=== PATIENT | male | born 1980 | race Hispanic/Latino ===

== ENCOUNTER 2020-03-19 10:57 | Emergency (ER) | payer SELFPAY ==
[2020-03-19] MEDS ORDERED: MECLIZINE HCL 12.5 MG TAB ONE (11:39)
[2020-03-19] MEDS ORDERED: PROMETHAZINE INJ 25 MG/ML AMP ONE (11:39)
[2020-03-19] MEDS ORDERED: NA CHLORIDE 0.9% 1,000 ML ONE (11:39)
[2020-03-19 11:52] LABS: Absolute Lymphocytes (CBC) 1.9 K/uL (0.7-4.9); Basophils % 0.9 % (0-1.3); Hematocrit 46.4 % (39.6-49.0); Lymphocytes % 19.6 % (15.3-44.8); MPV 8.3 fL (7.6-11.3); RBC Red Blood Cell Count 5.15 M/uL (4.33-5.43)
[2020-03-19 12:06] LABS: BUN Blood Urea Nitrogen 13 mg/dL (7-18); Bicarbonate 27 mmol/L (21-32); Glucose Level 123 mg/dL (74-106); Potassium 4.3 mmol/L (3.5-5.1); Sodium Level 141 mmol/L (136-145)
--- NOTE | 2020-03-19 13:36 | ER ---
Nurse's Notes [facility] Name: Laureano Ly Age: 40 yrs Sex: Male : 1980 Arrival Date: 03/19/2020 Time: 10:58 Bed 6 Private MD: Diagnosis: Vertigo Presentation: 03/19 11:03 Chief complaint: Patient states: Dizziness that began this morning when patient woke up ss at 0900. Is worse when opening eyes and moving head. Also c/o N/V with dizziness. Coronavirus screen: Proceed with normal triage. Patient denies a cough. Patient denies shortness of breath or difficulty breathing. Patient denies measured and/or subjective temperature greater than 100.4F prior to today's visit. Patient denies travel on a cruise ship or to a country the [facility] currently lists as an affected area. Patient denies contact with known and/or suspected case of COVID-19. Ebola Screen: Patient denies exposure to infectious person. Patient denies travel to an Ebola-affected area in the 21 days before illness onset. Initial Sepsis Screen: Does the patient meet any 2 criteria? No. Patient's initial sepsis screen is negative. Does the patient have a suspected source of infection? No. Patient's initial sepsis screen is negative. Risk Assessment: Do you want to hurt yourself or someone else? Patient reports no desire to harm self or others. Onset of symptoms was March 19, 2020. 11:03 Method Of Arrival: Ambulatory ss 11:03 Acuity: NORMAN 3 ss Historical: - Allergies: 11:05 No Known Allergies; ss - Home Meds: 11:05 None [Active]; ss - PMHx: 11:05 None; ss - PSHx: 11:05 None; ss - Immunization history:: Adult Immunizations up to date. - Social history:: Smoking status: Patient denies any tobacco usage or history of. Screenin:18 Abuse screen: Denies threats or abuse. Denies injuries from another. Nutritional sv screening: No deficits noted. Tuberculosis screening: No symptoms or risk factors identified. Fall Risk None identified. Assessment: 11:30 General: Appears in no apparent distress. uncomfortable, well groomed, well developed, sv Behavior is calm, cooperative, appropriate for age. Pain: Denies pain. Neuro: Level of Consciousness is awake, alert, obeys commands, Oriented to person, place, time, situation, Moves all extremities. Full function Speech is normal, Reports dizziness, since waking up this morning. Respiratory: Airway is patent Respiratory effort is even, unlabored, Respiratory pattern is regular, symmetrical. GI: Abdomen is round non-distended, Reports nausea, vomiting. Derm: Skin is intact, Skin is pink, warm \T\ dry. Musculoskeletal: Range of motion: intact in all extremities. 12:30 Reassessment: Patient appears in no apparent distress at this time. Patient and/or sv family updated on plan of care and expected duration. Pain level reassessed. Patient is alert, oriented x 3, equal unlabored respirations, skin warm/dry/pink. 13:52 Reassessment: Patient appears in no apparent distress at this time. Patient and/or sv family updated on plan of care and expected duration. Pain level reassessed. Patient is alert, oriented x 3, equal unlabored respirations, skin warm/dry/pink. Patient states feeling better. Patient states symptoms have improved. Vital Signs: 11:03 BP 137 / 90; Pulse 86; Resp 16; Temp 97.0(TE); Pulse Ox 98% on R/A; Weight 106.59 kg; ss Height 5 ft. 7 in. (170.18 cm); Pain 0/10; 11:03 Body Mass Index 36.81 (106.59 kg, 170.18 cm) ED Course: 10:58 Patient arrived in ED. as 11:04 Triage completed. ss 11:05 Arm band placed on right wrist. ss 11:14 Mary Alice Escudero FNP-C is [facility]. snw 11:14 Eryn Lopez MD is Attending Physician. snw 11:16 Kaci Kuhn RN is Primary Nurse. sv 11:18 Nurse Practitioner and/or Physician Building Carpenter Helper to see patient. sv 11:18 Patient has correct armband on for positive identification. Bed in low position. Call sv light in reach. Door closed. Head of bed elevated. 11:30 Inserted saline lock: 20 gauge in right antecubital area, using aseptic technique. sv Blood collected. Flushed right antecubital with 5 ml normal saline. 13:52 No provider procedures requiring assistance completed. IV discontinued, intact, sv bleeding controlled, No redness/swelling at site. Pressure dressing applied. Administered Medications: 11:46 Drug: Phenergan 25 mg Route: IM; Site: right gluteus; sv 12:16 Follow up: Response: No adverse reaction sv 11:47 Drug: NS 0.9% 1000 ml Route: IV; Rate: 1 bolus; Site: right antecubital; sv 13:00 Follow up: Response: No adverse reaction; IV Status: Completed infusion; IV Intake: sv 1000ml 11:47 Drug: Antivert 50 mg Route: PO; sv 12:16 Follow up: Response: No adverse reaction sv Intake: 13:00 IV: 1000ml; Total: 1000ml. sv Outcome: 13:35 Discharge ordered by MD. snw 13:52 Patient left the ED. ph 13:52 Discharged to home ambulatory, with family. sv 13:52 Condition: stable 13:52 Discharge instructions given to patient, family, Instructed on discharge instructions, follow up and referral plans. medication usage, Demonstrated understanding of instructions, follow-up care, medications, Prescriptions given X 1. Signatures: Kaci Kuhn RN RN Mary Alice Escudero, MATTRESS WEAVER-C MATTRESS WEAVER-Csnw Chante Hubbard Shelby, RN RN Shelbi Ramirez RN RN ph Corrections: (The following items were deleted from the chart) 11:12 11:03 Acuity: NORMAN 4 ss ss
--- NOTE | 2020-03-19 13:36 | EDPHYS ---
Physician Documentation [facility] Name: Laureano Ly Age: 40 yrs Sex: Male : 1980 Arrival Date: 03/19/2020 Time: 10:58 Bed 6 Private MD: ED Physician Eryn Lopez HPI: 03/19 11:23 This 40 yrs old Male presents to ER via Ambulatory with complaints of Nausea, snw Dizziness. 11:23 The patient presents to the emergency department with nausea, vomiting. Onset: The snw symptoms/episode began/occurred gradually, this morning. Possible causes: unknown. The symptoms are aggravated by movement. Associated signs and symptoms: Pertinent positives: nausea, vomiting, dizziness. Severity of symptoms: At their worst the symptoms were moderate severe in the emergency department the symptoms are unchanged. The patient has not experienced similar symptoms in the past. The patient has not recently seen a physician. Historical: - Allergies: 11:05 No Known Allergies; ss - Home Meds: 11:05 None [Active]; ss - PMHx: 11:05 None; ss - PSHx: 11:05 None; ss - Immunization history:: Adult Immunizations up to date. - Social history:: Smoking status: Patient denies any tobacco usage or history of. ROS: 11:22 Constitutional: Negative for fever, chills, and weight loss, + dizziness Eyes: Negative snw for injury, pain, redness, and discharge, ENT: Negative for injury, pain, and discharge, Neck: Negative for injury, pain, and swelling, Cardiovascular: Negative for chest pain, palpitations, and edema, Respiratory: Negative for shortness of breath, cough, wheezing, and pleuritic chest pain, Back: Negative for injury and pain, : Negative for injury, bleeding, discharge, and swelling, MS/Extremity: Negative for injury and deformity, Skin: Negative for injury, rash, and discoloration, Neuro: Negative for headache, weakness, numbness, tingling, and seizure, Psych: Negative for depression, anxiety, suicide ideation, homicidal ideation, and hallucinations. 11:22 Abdomen/GI: Positive for nausea and vomiting. Exam: 11:21 Constitutional: This is a well developed, well nourished patient who is awake, alert, snw and in no acute distress. Head/Face: Normocephalic, atraumatic. 11:21 ENT: Nares patent. No nasal discharge, no septal abnormalities noted. Tympanic membranes are normal and external auditory canals are clear. Oropharynx with no redness, swelling, or masses, exudates, or evidence of obstruction, uvula midline. Mucous membranes moist. Neck: Trachea midline, no thyromegaly or masses palpated, and no cervical lymphadenopathy. Supple, full range of motion without nuchal rigidity, or vertebral point tenderness. No Meningismus. Chest/axilla: Normal chest wall appearance and motion. Nontender with no deformity. No lesions are appreciated. Cardiovascular: Regular rate and rhythm with a normal S1 and S2. No gallops, murmurs, or rubs. Normal PMI, no JVD. No pulse deficits. Respiratory: Lungs have equal breath sounds bilaterally, clear to auscultation and percussion. No rales, rhonchi or wheezes noted. No increased work of breathing, no retractions or nasal flaring. Abdomen/GI: Soft, non-tender, with normal bowel sounds. No distension or tympany. No guarding or rebound. No evidence of tenderness throughout. Back: No spinal tenderness. No costovertebral tenderness. Full range of motion. Skin: Warm, dry with normal turgor. Normal color with no rashes, no lesions, and no evidence of cellulitis. MS/ Extremity: Pulses equal, no cyanosis. Neurovascular intact. Full, normal range of motion. Neuro: Awake and alert, GCS 15, oriented to person, place, time, and situation. Cranial nerves II-XII grossly intact. Motor strength 5/5 in all extremities. Sensory grossly intact. Cerebellar exam normal. Normal gait. Psych: Awake, alert, with orientation to person, place and time. Behavior, mood, and affect are within normal limits. 11:21 Eyes: Nystagmus: nystagmus with fast component noted, bilaterally, when head turned to right. Vital Signs: 11:03 BP 137 / 90; Pulse 86; Resp 16; Temp 97.0(TE); Pulse Ox 98% on R/A; Weight 106.59 kg; ss Height 5 ft. 7 in. (170.18 cm); Pain 0/10; 11:03 Body Mass Index 36.81 (106.59 kg, 170.18 cm) ss MDM: 11:21 Patient medically screened. snw 13:36 Data reviewed: vital signs, nurses notes. Data interpreted: Pulse oximetry: on room air snw is 98 %. Interpretation: normal. Counseling: I had a detailed discussion with the patient and/or guardian regarding: the historical points, exam findings, and any diagnostic results supporting the discharge/admit diagnosis, the presence of at least one elevated blood pressure reading (>120/80) during this emergency department visit, the need for outpatient follow up, to return to the emergency department if symptoms worsen or persist or if there are any questions or concerns that arise at home. Special discussion: I have referred the patient to see his PCP for further evaluation of high blood pressure. Based on the history and exam findings, there is no indication for further emergent testing or inpatient evaluation. I discussed with the patient/guardian the need to see the primary care provider for further evaluation of the symptoms. 13:39 Response to treatment: the patient's symptoms have markedly improved after treatment, snw and as a result, I will discharge patient. 03/19 11:25 Order name: Chem 7; Complete Time: 12:49 snw 03/19 11:25 Order name: CBC with Diff; Complete Time: 12:49 snw Administered Medications: 11:46 Drug: Phenergan 25 mg Route: IM; Site: right gluteus; sv 12:16 Follow up: Response: No adverse reaction sv 11:47 Drug: NS 0.9% 1000 ml Route: IV; Rate: 1 bolus; Site: right antecubital; sv 13:00 Follow up: Response: No adverse reaction; IV Status: Completed infusion; IV Intake: sv 1000ml 11:47 Drug: Antivert 50 mg Route: PO; sv 12:16 Follow up: Response: No adverse reaction sv Disposition: 19:13 Co-signature as Attending Physician, Eryn Lopez MD. ma2 Disposition: 03/19/20 13:35 Discharged to Home. Impression: Vertigo. - Condition is Stable. - Discharge Instructions: Benign Positional Vertigo, Anthony Maneuver Self-Care, Rehydration, Adult. - Prescriptions for Antivert 25 mg Oral Tablet - take 1 tablet by ORAL route every 8 hours As needed; 20 tablet. - Work release form, Medication Reconciliation Form, Thank You Letter, Antibiotic Education, Prescription Opioid Use form. - Follow up: Private Physician; When: 2 - 3 days; Reason: Recheck today's complaints, Continuance of care, Re-evaluation by your physician. Follow up: Emergency Department; When: As needed; Reason: Worsening of condition. Signatures: Dispatcher [employer] EDKaci Jones, RN RN Mary Alice Zimmer, CRYSTAL EVALUATOR-C CRYSTAL EVALUATOR-Csnw Jenelle Hay RN RN Shelbi Ramirez RN RN Eryn Lopez MD MD [email or web address] Corrections: (The following items were deleted from the chart) 13:52 13:35 03/19/2020 13:35 Discharged to Home. Impression: Vertigo. Condition is Stable. ph Discharge Instructions: Benign Positional Vertigo, Anthony Maneuver Self-Care, Rehydration, Adult. Prescriptions for Antivert 25 mg Oral Tablet - take 1 tablet by ORAL route every 8 hours As needed; 20 tablet. and Forms are Work release form, Medication Reconciliation Form, Thank You Letter, Antibiotic Education, Prescription Opioid Use. Follow up: Private Physician; When: 2 - 3 days; Reason: Recheck today's complaints, Continuance of care, Re-evaluation by your physician. Follow up: Emergency Department; When: As needed; Reason: Worsening of condition. snw
[2020-03-19 14:01] VITALS: BP 137/90; TEMP 97; O2SAT 98
== END 2020-03-19 13:52 | disposition home or self-care (01) ==
LOC: ER 10:57
DX: R42 Dizziness and giddiness (principal); R11.2 Nausea with vomiting, unspecified
CPT/HCPCS: 36415; 80048; 85025; 96360; 96372; 99284; J2550; J7030; J8597